=== PATIENT | female | born 1970 | race African-American/Black ===

== ENCOUNTER 2017-05-21 15:13 | Emergency (ER) | payer OTHER ==
[2017-05-21 15:20] VITALS: BP 140/83; PULSE 62; TEMP 98; BMI 26.6
[2017-05-21] MEDS ORDERED: SODIUM CHLORIDE 0.9% 1000 ML INFUS.BAG IV ONE (17:03)
[2017-05-21] MEDS ORDERED: IBUPROFEN 600 MG TABLET (FP) PO ONE ×2 (17:46→19:46)
[2017-05-21 18:12] LABS: BASOPHIL 0.9 % (0-2.0); EOSINOPHIL 0.9 % (0-4.5); MCH 29.4 pg (25.7-33.7); MCHC 32.9 g/dl (32.0-36.0); MEAN CELL VOLUME 89.5 fl (80-96); MEAN PLT VOLUME 9.7 fl (7.5-11.1); PLATELET COUNT 224 K/MM3 (134-434); RDW 14.3 % (11.6-15.6); WHITE BLOOD COUNT 5.8 K/mm3 (4.0-10.0)
[2017-05-21 19:15] LABS: ANION GAP 6 (8-16); CALCIUM 9.1 mg/dL (8.5-10.1); CO2 28 mmol/L (21-32); CREATININE 0.6 mg/dL (0.55-1.02); GLUCOSE,RANDOM 92 mg/dL (74-106); SGOT/AST 21 U/L (15-37); SGPT/ALT 32 U/L (12-78)
[2017-05-21 19:17] LABS: ALK PHOS 57 U/L (45-117); BILIRUBIN,TOTAL 0.3 mg/dL (0.2-1.0); TOT PROT 7.4 g/dl (6.4-8.2)
[2017-05-21 19:30] LABS: URINE APPEARANCE CLEAR; URINE BILIRUBIN NEGATIVE (NEGATIVE); URINE BLOOD 2+ (NEGATIVE); URINE COLOR STRAW; URINE GLUCOSE (UA) NEGATIVE (NEGATIVE); URINE KETONE NEGATIVE (NEGATIVE); URINE LEUK ESTERASE NEGATIVE (NEGATIVE); URINE NITRITE NEGATIVE (NEGATIVE); URINE PROTEIN NEGATIVE (NEGATIVE); URINE UROBILINOGEN NEGATIVE mg/dL (0.2-1.0)
[2017-05-21 19:34] LABS: URINE MUCUS RARE; URINE RBC <1 /hpf (0-3)
--- NOTE | 2017-05-21 19:39 | PDOC ---
History of Present Illness - General History Source: Patient - History of Present Illness Initial Comments: 05/21/17 19:32 47F present to the ed with suprapubic pain and spotting. Last period 4 weeks ago. Usually takes Midol for the pain but only relieves the pain for an hour. Also complains of burning sensation in the feet. Next appointment with obgyn is in July but couldn't wait due to intensity of the pain. No nausea, vomiting, dysuria. <Dago Ramires - Last Filed: 05/21/17 19:31> <Julieta Negron - Last Filed: 05/21/17 21:49> - General Chief Complaint: Pain, Acute Stated Complaint: PAIN Time Seen by Provider: 05/21/17 15:43 Past History - Past Medical History HTN: Yes - Reproductive History Is Patient Now?: No (unk) (#): 2 Para: 1 Cervical CA: No Dysfunctional Uterine Bleeding: No Ectopic : No Endometrial CA: No Polycystic Ovaries: No Therapeutic (s) & number: Yes (1) Tubal Ligation: No Spontaneous : 0 - Immunization History Immunization Up to Date: Yes - Psycho/Social/Smoking Cessation Hx Anxiety: No Suicidal Ideation: No Smoking Status: No Smoking History: Never smoked Number of Cigarettes Smoked Daily: 0 Information on smoking cessation initiated: No Hx Alcohol Use: No Drug/Substance Use Hx: No <Dago Ramires - Last Filed: 05/21/17 19:31> <Julieta Negron - Last Filed: 05/21/17 21:49> - Past Medical History Allergies/Adverse Reactions: Allergies Allergy/AdvReac Type Severity Reaction Status Date / Time No Known Allergies Allergy Verified 05/21/17 15:17 Home Medications: Ambulatory Orders Amlodipine Besylate 5 mg PO DAILY 05/21/17 Gabapentin [Neurontin] 300 mg PO ASDIR 05/21/17 *Physical Exam - Vital Signs Last Vital Signs Temp Pulse Resp BP Pulse Ox 98.0 F 62 18 140/83 100 05/21/17 15:18 05/21/17 15:18 05/21/17 15:18 05/21/17 15:18 05/21/17 15:18 <Dago Ramires - Last Filed: 05/21/17 19:31> - Vital Signs Last Vital Signs Temp Pulse Resp BP Pulse Ox 98.0 F 62 18 140/83 100 05/21/17 15:18 05/21/17 15:18 05/21/17 15:18 05/21/17 15:18 05/21/17 15:18 <JamilJulieta - Last Filed: 05/21/17 21:49> ED Treatment Course - LABORATORY CBC & Chemistry Diagram: 05/21/17 17:13 05/21/17 17:13 - ADDITIONAL ORDERS Additional order review: Laboratory Results 05/21/17 05/21/17 05/21/17 19:00 19:00 17:13 Sodium 140 Potassium 4.1 Chloride 106 Carbon Dioxide 28 Anion Gap 6 L BUN 6 L Creatinine 0.6 Creat Clearance w eGFR > 60 Random Glucose 92 Calcium 9.1 Total Bilirubin 0.3 AST 21 ALT 32 Alkaline Phosphatase 57 Total Protein 7.4 Albumin 4.0 Urine Color Straw Urine Appearance Clear Urine pH 6.0 Urine Protein Negative Urine Glucose (UA) Negative Urine Ketones Negative Urine Blood 2+ H Urine Nitrite Negative Urine Bilirubin Negative Urine Urobilinogen Negative Ur Leukocyte Esterase Negative Urine HCG, Qual Negative 05/21/17 17:13 RBC 4.41 MCV 89.5 MCHC 32.9 RDW 14.3 MPV 9.7 Neutrophils % 57.0 Lymphocytes % 32.4 Monocytes % 8.8 Eosinophils % 0.9 Basophils % 0.9 - RADIOLOGY Radiology Studies Ordered: Category Date Time Status TRANSVAGINAL ULTRASOUND US [US] Stat Ultrasound 05/21/17 19:28 Ordered - Medications Given in the ED: ED Medications Discontinued Medications Generic Name Dose Route Start Last Admin Trade Name Allq PRN Reason Stop Dose Admin Sodium Chloride 1,000 ml 05/21/17 17:03 05/21/17 18:40 Normal Saline - IV 05/21/17 17:04 1,000 ml ONCE ONE Administration <Dago Ramires - Last Filed: 05/21/17 19:31> - LABORATORY CBC & Chemistry Diagram: 05/21/17 17:13 05/21/17 17:13 - ADDITIONAL ORDERS Additional order review: Laboratory Results 05/21/17 05/21/17 05/21/17 19:00 19:00 17:13 Sodium 140 Potassium 4.1 Chloride 106 Carbon Dioxide 28 Anion Gap 6 L BUN 6 L Creatinine 0.6 Creat Clearance w eGFR > 60 Random Glucose 92 Calcium 9.1 Total Bilirubin 0.3 AST 21 ALT 32 Alkaline Phosphatase 57 Total Protein 7.4 Albumin 4.0 Urine Color Straw Urine Appearance Clear Urine pH 6.0 Urine Protein Negative Urine Glucose (UA) Negative Urine Ketones Negative Urine Blood 2+ H Urine Nitrite Negative Urine Bilirubin Negative Urine Urobilinogen Negative Ur Leukocyte Esterase Negative Urine RBC <1 Urine WBC None Ur Epithelial Cells Rare Urine Mucus Rare Urine HCG, Qual Negative 05/21/17 17:13 RBC 4.41 MCV 89.5 MCHC 32.9 RDW 14.3 MPV 9.7 Neutrophils % 57.0 Lymphocytes % 32.4 Monocytes % 8.8 Eosinophils % 0.9 Basophils % 0.9 - Medications Given in the ED: ED Medications Discontinued Medications Generic Name Dose Route Start Last Admin Trade Name Kristopher PRN Reason Stop Dose Admin Ibuprofen 600 mg 05/21/17 17:46 05/21/17 19:30 Motrin - PO 05/21/17 17:47 Not Given ONCE ONE Sodium Chloride 1,000 ml 05/21/17 17:03 05/21/17 18:40 Normal Saline - IV 05/21/17 17:04 1,000 ml ONCE ONE Administration <Julieta Negron - Last Filed: 05/21/17 21:49> *DC/Admit/Observation/Transfer <Dago Ramires - Last Filed: 05/21/17 19:31> <Julieta Negron - Last Filed: 05/21/17 21:49> Diagnosis at time of Disposition: Dysfunctional uterine bleeding, Uterine leiomyoma - Discharge Dispostion Disposition: HOME Condition at time of disposition: Improved - Referrals Referrals: Rob Lin MD [Primary Care Provider] - - Patient Instructions Printed Discharge Instructions: Uterine Fibroids, DI for Abnormal Uterine Bleeding Additional Instructions: 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 call to schedule. your labs today are normal. see attached for a copy to show your doctor. return for any complaints or concerns. you can take motrin 400 mg every 8 hours as needed for abdominal cramps. return for feeling dizzy , lightheaded. severe or worsening pain , bleeding or any concerns.
--- NOTE | 2017-05-21 21:47 | PDOC ---
Attending Attestation - Resident Resident Name: IkeDago - ED Attending Attestation I have performed the following: I have examined & evaluated the patient, The case was reviewed & discussed with the resident, I agree w/resident's findings & plan, Exceptions are as noted - HPI HPI: 05/21/17 21:44 47 yo F h/o fibroids here with c/o irregular spotting, mild suprapubic crampy pain. believes she is perimenopausal as last period was several months ago. no diziness. no urinary complaints. sxs mild. 05/21/17 21:46 - Physicial Exam PE: 05/21/17 21:45 awake alert lungs clear heart rrr no mrg abd soft mild suprapubic ttp. ND skin warm and dry . 05/21/17 21:47 - Medical Decision Making 05/21/17 21:47 plan labs r/o anemia. tvus. toney ross outpt knowledge manager followup. <Julieta Negron - Last Filed: 05/21/17 21:44> - Medical Decision Making 05/21/17 21:51 EXAM#: TYPE/EXAM: RESULT: [id number] US/TRANSVAGINAL ULTRASOUND US Vaginal bleeding. History of fibroids. Pelvis ultrasound, transvesical and transvaginal LMP is 05/18/2017. The transvesical images are nondiagnostic. On the transvaginal examination, the uterus measures 9 x 4.5 cm in sagittal and AP dimension. There is a small posterior myometrial hypoechoic mass measuring 1.2 cm. Other smaller hypoechoic lesions are present likely representing fibroids. Endometrial stripe measures 4 mm in thickness. The right ovary measures 3 x 1.4 cm with a few small follicles and normal vascular flow on the color Doppler images. Pulsed Doppler evaluation of the right ovary was not obtained. The left ovary was not visualized. No free fluid in the cul-de-sac Impression: Fibroid uterus, as described above with the largest measuring 1.2 cm. Normal thickness of the endometrial stripe. Normal-appearing right ovary. Left ovary was not visualized Reported By: Dar Horner MD 05/21/172051 <India Mercado - Last Filed: 05/21/17 21:52>
== END 2017-05-21 22:11 | disposition home or self-care (01) ==
LOC: JERFT 15:13 → JER 15:13
PROC: 3E0337Z Introduction of Electrolytic and Water Balance Substance into Peripheral Vein, Percutaneous Approach (ICD-10-PCS; principal; 2017-05-21)
DX: N93.8 Other specified abnormal uterine and vaginal bleeding (principal); D25.9 Leiomyoma of uterus, unspecified
CPT/HCPCS: 36415; 76830-TC; 80053; 81003; 81015; 84703; 85025; 99283-25